=== PATIENT | male | born 1960 | race Caucasian/White ===

== ENCOUNTER 2018-01-08 14:05 | Outpatient (CLI) | payer OTHER ==
--- NOTE | 2018-01-08 16:16 | RAD ---
TWO VIEWS FROM A KUB: 01/08/18 INDICATION: History of renal calculus. FINDINGS: There is a 4 mm nonobstructing calculus overlying the superior pole of the right kidney. No suspiciou s calcification seen involving the expected course of the renal collecting system. Bowel gas pattern is unobstructed. Small phleboliths are seen in the lower right hemipelvis. No acute osseous abnormali ty is evident. IMPRESSION: Right nephrolithiasis. POS: HAMLET
== END 2018-01-08 14:06 | disposition home or self-care (01) ==
LOC: RAD 14:05
PROVIDERS: ATTEND Urology
DX: Z12.5 Encounter for screening for malignant neoplasm of prostate (principal); N20.0 Calculus of kidney
CPT/HCPCS: 36415; 74018; G0103